=== PATIENT | male | born 1985 | race Caucasian/White ===

== ENCOUNTER 2016-09-11 19:56 | Emergency (ER) | payer SELFPAY ==
[~2016-09-11] VITALS: Ht 165.1 cm; Wt 61.2 kg
[2016-09-11 20:04] VITALS: BP 112/84
--- NOTE | 2016-09-11 21:38 | NUR ---
PT TAKEN TO BED 6
--- NOTE | 2016-09-11 21:48 | NUR ---
PATIENT PRESENTS TO ED WITH CP X2DAYS . PT STATES PAIN ONLY OCCURS ON EXPIRATION AND IS RELIEVED WHEN HE TAKES TYLENOL . DENIES N/V/D; SKIN IS PINK/WARM/DRY; AAOX4 WITH EVEN AND STEADY GAIT; LUNGS CLEAR BL; HR EVEN AND REGULAR; PT DENIES ANY FEVER, SOB, OR COUGH AT THIS TIME; PATIENT STATES PAIN OF 8/10 AT THIS TIME; VSS; PATIENT POSITIONED FOR COMFORT; HOB ELEVATED; BEDRAILS UP X2; BED DOWN. ER MD MADE AWARE OF PT STATUS.
--- NOTE | 2016-09-11 21:53 | NUR ---
Dr. Marrero evaluating patient at bedside.
[2016-09-11 22:53] VITALS: BP 128/83
--- NOTE | 2016-09-11 22:58 | NUR ---
PER DR REED Patient discharged with v/s stable. Written and verbal after care instructions given and explained. Patient verbalized understanding. Ambulatory with steady gait. All questions addressed prior to discharge. Advised to follow up with PMD. DC NOTE ONLY
== END 2016-09-11 22:58 | disposition home or self-care (01) ==
LOC: MED 19:56
DX: F15.129 Other stimulant abuse with intoxication, unspecified (principal)